=== PATIENT | female | born 1995 | race Caucasian/White ===

== ENCOUNTER → 2019-08-20 18:01 | Outpatient (CLI) | payer OTHER, SELFPAY ==
[2015-07-05 17:01] VITALS: BMI 25.7
[2019-08-26 16:24] LABS: HPV Reflexed? NOT INDICATED
== END ==
PROVIDERS: Referring Provider Obstetrics & Gynecology; Visit Provider Obstetrics & Gynecology
DX: Z12.4 Encounter for screening for malignant neoplasm of cervix (principal)
CPT/HCPCS: 88175; G0145

== ENCOUNTER → 2020-01-10 | Outpatient (CLI) | payer OTHER, SELFPAY ==
[2015-07-05 17:01] VITALS: BMI 25.7
== END | disposition home or self-care (01) ==
LOC: LABSPEC 16:08
PROVIDERS: Referring Provider Family Medicine; Visit Provider Family Medicine
DX: U07.1 COVID-19 (principal)
CPT/HCPCS: 87635; U0003

== ENCOUNTER → 2020-07-28 13:06 | Outpatient (CLI) | payer OTHER, SELFPAY ==
--- NOTE | 2020-07-28 13:10 | VDLE_ITS ---
Reason For Study: Pain in calf RIGHT GSV is normal. CFV is compressible, spontaneous, phasic, competent and demonstrates normal augmentation. FV is compressible, spontaneous, phasic, competent and demonstrates normal augmentation. POP V is compressible, spontaneous, phasic, competent and demonstrates normal augmentation. T/P Trunk is compressible. Acute deep vein thrombosis is noted in the right posterior tibial vein. Acute deep vein thrombosis is noted in the right peroneal vein. Procedure This is a venous duplex using B-mode, color flow and spectral Doppler. Exam performed in department. A preliminary report was called and/or faxed to Michelle, racing secretary and handicapper. PCP called for treatment. VL/Venous Duplex US, Unilateral Interpretation Summary Acute deep venous thrombosis right posterior tibial and peroneal veins. Slightly sluggish flow noted in the right popliteal vein. Patent and compressible right great saphenous vein Ordering Physician: Ezio Coronado Referring Physician: Roberto Ontiveros Performed By: Katie Rai RVT
== END ==
PROVIDERS: PCP Family Medicine; Referring Provider Orthopaedic Surgery; Visit Provider Orthopaedic Surgery
DX: M22.11 Recurrent subluxation of patella, right knee (principal)
CPT/HCPCS: 93971

== ENCOUNTER → 2021-01-04 14:14 | Outpatient (CLI) | payer OTHER, SELFPAY ==
[2021-01-04 18:12] LABS: CRP 6.17 mg/L (0.0-3.0); Thyroid Stim Hormone (TSH) 1.65 uIU/mL (0.358-3.74)
[2021-01-06 16:09] LABS: Endomysial Antibody IgA Negative (Negative)
[2021-01-06 19:10] LABS: Immunoglobulin A 187 mg/dL (87-352); t-Transglutaminase IgA <2 U/mL (0-3)
== END ==
PROVIDERS: Referring Provider Internal Medicine Gastroenterology; Visit Provider Internal Medicine Gastroenterology
DX: R19.7 Diarrhea, unspecified (principal)
CPT/HCPCS: 36415; 82784; 83516; 84436; 84443; 86140; 86255

== ENCOUNTER 2021-02-15 07:57 | Outpatient (CLI) | payer OTHER, SELFPAY | END 2021-02-15 23:59 | disposition short-term general hospital (02) | LOC: LABSPEC 02-16 07:57 | PROVIDERS: Referring Provider Nurse Practitioner Family | DX: Z20.822 Contact with and (suspected) exposure to COVID-19 (principal) | CPT/HCPCS: 87635; U0003; U0005 ==

== ENCOUNTER 2021-04-30 10:59 | Outpatient (CLI) | payer OTHER, SELFPAY ==
--- NOTE | 2021-04-30 11:02 | VDLE_ITS ---
Reason For Study: Elevated D-dimer RIGHT LEFT GSV is normal. GSV is normal. CFV is compressible, spontaneous, phasic, CFV is compressible, spontaneous, phasic, competent and demonstrates normal competent, and demonstrates normal augmentation. augmentation. FV is compressible, spontaneous, phasic, FV is compressible, spontaneous, phasic, competent and demonstrates normal competent and demonstrates normal augmentation. augmentation. POP V is compressible, spontaneous, phasic, POP V is compressible, spontaneous, phasic, competent and demonstrates normal competent and demonstrates normal augmentation. augmentation. T/P Trunk is compressible. T/P Trunk is compressible. PTV is compressible. PTV is compressible. RT PerV is compressible. LT PerV is compressible. Procedure This is a venous duplex using B-mode, color flow and spectral Doppler. Exam performed in department. Compared to 07/28/2020. A preliminary report was called and/or faxed to [facility]. VL/Venous Duplex US - Eric Extrem Interpretation Summary No evidence for acute deep venous thrombosis bilateral lower extremities with p atent and compressible bilateral great saphenous veins. Ordering Physician: Rupert Barlow Performed By: Katie Rai RVT
[2021-04-30 12:07] LABS: D-Dimer Quantitative (DVT/PE) 0.56 FEU/ug/m (0.27-0.49)
== END 2021-04-30 23:59 | disposition home or self-care (01) ==
LOC: CVS 11:01
PROVIDERS: Referring Provider Internal Medicine Medical Oncology; Visit Provider Internal Medicine Medical Oncology
DX: I82.5Z1 Chronic embolism and thrombosis of unspecified deep veins of right distal lower extremity (principal)
CPT/HCPCS: 36415; 85379; 93970

== ENCOUNTER 2021-05-24 16:39 | Outpatient (CLI) | payer OTHER, SELFPAY ==
[2021-05-24 17:54] LABS: D-Dimer Quantitative (DVT/PE) 0.46 FEU/ug/m (0.27-0.49)
== END 2021-05-24 23:59 | disposition home or self-care (01) ==
LOC: MTLAB 16:54
PROVIDERS: Referring Provider Internal Medicine Medical Oncology; Visit Provider Internal Medicine Medical Oncology
DX: I82.5Z1 Chronic embolism and thrombosis of unspecified deep veins of right distal lower extremity (principal); R79.89 Other specified abnormal findings of blood chemistry
CPT/HCPCS: 36415; 85379

== ENCOUNTER → 2021-11-16 | Outpatient (CLI) | payer OTHER, SELFPAY ==
[2021-11-16 11:51] LABS: Follicle Stimulating Hormone 6.1 mIU/mL; Luteinizing Hormone 20.5 mIU/mL; Prolactin 5.4 ng/mL; Thyroid Stim Hormone (TSH) 1.63 uIU/mL (0.358-3.74)
== END | disposition home or self-care (01) ==
LOC: WOBLAB 10:33
PROVIDERS: Visit Provider Student in an Organized Health Care Education/Training Program
DX: N92.6 Irregular menstruation, unspecified (principal)
CPT/HCPCS: 36415; 83001; 83002; 84146; 84443

== ENCOUNTER → 2023-01-12 | Outpatient (CLI) | payer OTHER, SELFPAY ==
[2023-01-12 18:05] LABS: D-Dimer Quantitative (DVT/PE) 0.39 FEU/ug/m (0.27-0.49)
== END | disposition home or self-care (01) ==
LOC: MFPLAB 14:39
PROVIDERS: PCP Family Medicine; Visit Provider Nurse Practitioner Family
DX: R07.9 Chest pain, unspecified (principal)
CPT/HCPCS: 36415; 85379

== ENCOUNTER → 2023-04-07 | Outpatient (CLI) | payer OTHER, SELFPAY ==
--- NOTE | 2023-04-07 11:26 | RAD_ITS ---
INDICATION: Chest pain EXAMINATION/TECHNIQUE: X-RAY - XR Chest 2 Views COMPARISON: FINDINGS: LINES/DEVICES: None. LUNGS: No consolidation, edema or effusion. No pneumothorax. MEDIASTINUM AND CARDIOVASCULAR STRUCTURES: Cardiac silhouette not enlarged. Central airways and mediastinal contour are unremarkable. BONES AND SOFT TISSUES: Unremarkable. RAD/Chest PA and Lateral IMPRESSION: No radiographic evidence of acute cardiopulmonary disease. Electronically Signed: Yasmany Epstein DO at 18:21 EST Reading Location ID and State: [facility] / [place] Tel [phone], Service support ,
--- OUTSIDE RECORDS SUMMARY | 2023-04-07 11:47 | XMS RPT_ITS | CCD ---
Author Name Unknown Address [address] [place] [address] Organization [facility] Care Team Providers Care Manager Account Management Name Role Phone Cliff PEREZ, Ezio Bey Medications Completed/Discontinued Medications Medication Drug Class(es) Dates Sig (Normalized) Sig (Original) DROSPIRENONE-ETHIN YL ESTRADIOL TABS (1 source) Progestin, Estrogen Start: 10-02-2017 RAYMUNDO TABS take 1 tablet once daily DROSPIRENONE-ETHINYL ESTRADIOL TABS [id number] Ezio Coronado MD MULTIPLE VITAMINS-MINERALS (1 source) Start: 04-03-2015 MULTIVITAMIN ADULT TABS one x a day MULTIPLE VITAMINS-MINERALS [id number] Ezio Coronado MD Problems Problem Classification Problem Date Documented Da te Episodic/Chronic Joint disorders and dislocations; trauma-related (1 source) Recurrent subluxation of the patella; Translations: [Recurrent subluxation of patella, right knee] Onset: 11-03-2014 11-03-2014 Episodic Other connective tissue disease (1 source) Pes anserinus bursitis; Translations: [Other bursitis of knee, right knee] Onset: 04-03-2015 04-03-2015 Episodic Unclassified (1 source) Problem Results Test Name Value Interpretation Reference Range Facil ity Vital Signs Date Time Vital Sign Value Performing Clinician Facility NEGATED: Highlighted [id number] 14:12-0400 BMI (Body Mass Index) 28.09 kg/m2 Katie Gracia AT [facility] Work Phone: NEGATED: Highlighted [id number] 14:12-0400 BP Diastolic 81 mm[Hg] Katie Gracia AT [facility] Work Phone: NEGATED: Highlighted [id number] 14:120400 BP Systolic 127 mm[Hg] Katie Gracia AT [facility] Work Phone: NEGATED: Highlighted [id number] 14:12040 Height 160 cm Katie Gracia AT [facility] Work Phone: NEGATED: Highlighted [id number] 14:120400 Height 160.02 cm Katie Gracia AT [facility] Work Phone: NEGATED: Highlighted [id number] 14:120400 Pulse (Heart Rate) 87 /min Katie Gracia AT [facility] Work Phone: NEGATED: Highlighted [id number] 14:120400 Weight 72 kg Katie Gracia AT [facility] Work Phone: NEGATED: Highlighted [id number] 14:120400 Weight 71.67 kg Katie Gracia AT [facility] Work Phone: Encounters Encounter Date Encounter Type Care Provider Facility Start: 10-02-2017 End: 10-02-2017 Patient encounter procedure Ezio Coronado MD Work Phone: [facility] Work Phone: Procedures Date Procedure Procedure Detail Performing Clinician Start: 10-02-2017 End: 10-02-2017 Adolescent tobacco screening was negative - non user Ezio Coronado MD Work Phone: Start: 10-02-2017 End: 10-02-2017 Blood pressure within normal parameters - no follow-up required Ezio Coronado MD Work Phone: Start: 10-02-2017 End: 10-02-2017 BMI documented as above normal parameters - follow-up documented Ezio Coronado MD Work Phone: Start: 10-02-2017 End: 10-02-2017 Current medications documented Ezio Coronado MD Work Phone: Start: 10-02-2017 End: 10-02-2017 LATERAL STABILIZER W/ HINGE - NEOPRENE (BREG) Ezio Coronado MD Work Phone: Start: 10-02-2017 End: 10-02-2017 Pain assessment documented as positive - follow-up documented Ezio Coronado MD Work Phone: Start: 10-02-2017 End: 10-02-2017 Tobacco non-user Ezio Coronado MD Work Phone: Plan of Treatment Date Care Activity Detail Author Start: 10-02-2017 End: 10-02-2017 Appointment Appointment [facility] Work Phone: Patient Education \[email or web address] [email or web address] [facility] Work Phone: Immunizations Immunization Date Immunization Notes Care Provider Sushila barrios No information available. Katie Gracia AT [facility] Work Phone: Social History Date Type Detail Facility Start: 10-02-2017 End: 10-02-2017 Assertion Unknown if ever smoked [facility] Work Phone: Instructions Instruction Description Start Date CompletedPatient advised to follow-up with Primary Care Physician for BMI management. Advance Directives There may be information available, but it has not been provided by the sender. Assessments There may be information available, but it has not been provided by the sender. Review of System There may be information available, but it has not been provided by the sender. Family History There may be information available, but it has not been provided by the sender. Additional Source Comments FOR RECORDS PERTAINING TO PATIENTS WHO ARE OR HAVE BEEN ENROLLED IN A CHEMICAL DEPENDENCY/SUBSTANCEABUSE PROGRAM, SOME INFORMATION MAY BE OMITTED. This clinical summary was aggregated from multiple sources. Caution should be exercised in using it in the provision of clinical care. This summary normalizes information from multiple sources, and as a consequence, information in this document may materially change the coding, format and clinical context of patient data. In addition, data may be omitted in some cases. CLINICAL DECISIONS SHOULD BE BASED ON THE PRIMARY CLINICAL RECORDS. [facility] [facility] provides no warranty or guarantee of the accuracy or completeness of information in this document.
== END | disposition home or self-care (01) ==
LOC: MTRAD 11:26
PROVIDERS: PCP Family Medicine; Referring Provider Family Medicine; Visit Provider Family Medicine
DX: M94.0 Chondrocostal junction syndrome [Tietze] (principal)
CPT/HCPCS: 71046

== ENCOUNTER → 2023-05-02 | Outpatient (CLI) | payer OTHER, SELFPAY ==
[2023-05-05 07:08] LABS: Chlamydia By Nucleic Acid AMP Negative (Negative); Gonococcus By Nucleic Acid AMP Negative (Negative)
[2023-05-08 18:38] LABS: HPV Reflexed? NOT INDICATED
== END | disposition home or self-care (01) ==
LOC: LABSPEC 16:14
PROVIDERS: PCP Family Medicine; Referring Provider Nurse Practitioner Women's Health; Visit Provider Nurse Practitioner Women's Health
DX: Z12.4 Encounter for screening for malignant neoplasm of cervix (principal); Z11.3 Encounter for screening for infections with a predominantly sexual mode of transmission
CPT/HCPCS: 87491; 87591; 88175; G0145

== ENCOUNTER → 2024-07-31 | Outpatient (CLI) | payer OTHER, SELFPAY ==
[2024-07-31 18:25] LABS: Rubella IgG REAC (Nonreactive)
[2024-07-31 18:39] LABS: Hepatitis B Surface Antibody Nonreactive
[2024-08-02 23:07] LABS: Mumps Antibody, IgM < 0.80 AU (0.00-0.79); V-Zoster Virus Acute IgM < 0.91 index (0.00-0.90)
== END | disposition home or self-care (01) ==
LOC: MTLAB 14:06
PROVIDERS: PCP Family Medicine
DX: Z00.00 Encounter for general adult medical examination without abnormal findings (principal)
CPT/HCPCS: 36415; 86706; 86735; 86762; 86787